=== PATIENT | male | born 1960 | race Caucasian/White ===

== ENCOUNTER 2019-01-02 11:47 | Emergency (ER) | payer OTHER, BC ==
[2019-01-02] MEDS ORDERED: Sodium Chloride 0.9% 10 ML Syringe FLUSH PRN (11:57)
[2019-01-02 12:10] LABS: ANION GAP 15.6 mmol/L (10-20); CHLORIDE,CL 107 mmol/L (98-109); SODIUM,NA 141 mmol/L (138-146)
--- NOTE | 2019-01-02 12:14 | CT ---
[id number] CT/CT Head WO IV EXAM: NONCONTRAST HEAD CT INDICATION: STROKE CODE COMPARISON: None. DISCUSSION: The ventricles and sulci are normal in size and configuration. The fitzgerald and white matter are normal in attenuation. No mass effect or midline shift. No acute hemorrhage or extra-axial fluid collection. No acute territorial infarct is identified. Mild paranasal sinus mucosal thickening. Results called at time of dictation. IMPRESSION: 1. No acute findings. Milton Espinal MD 01/02/19 1177 Thank you for allowing us to participate in the care of your patient.
[2019-01-02] MEDS ORDERED: Aspirin 81 MG Tab.Chew PO ONE (12:22)
--- NOTE | 2019-01-02 12:34 | EDM.PDOC ---
ED HPI GENERAL MEDICAL PROBLEM - General Stated Complaint: L sided facial, upper extremity and lower extremity paresthesia Time Seen by Provider: 01/02/19 11:47 Source of Information: Reports: Patient History Limitations: Reports: No Limitations - History of Present Illness INITIAL COMMENTS - FREE TEXT/NARRATIVE: Pt. presents to ER with complaints of acute onset of L sided facial numbness, L upper extremity numbness, and L leg numbness that started at approx. 1120 this AM. Pt. was just getting in the shower to get ready to go for his daily swim. Pt. states that he has never had symptoms like this before and denies any history of cerebrovascular disease. Denies any recent trauma to head or neck. Pt. reports some vertigo at onset of symptoms as well. He denies any hypertension or lipid disorders. He is a non-smoker. He recently had a stress test for exercise intolerance but he has not gotten the results. Pt. states that after onset, the symptoms almost completely resolved. He initially refused transport but was talked into it by EMS. His symptoms got mildly worse an he has had the above symptoms since arrival to ER. He has not had any facial droop or asymmetry. No pronator drift. Speech has been fluent and clear. - Related Data Allergies Allergy/AdvReac Type Severity Reaction Status Date / Time No Known Allergies Allergy Verified 01/02/19 11:57 Past Medical History - Past Health History Medical/Surgical History: Denies Medical/Surgical History ED ROS GENERAL - Review of Systems Review Of Systems: See Below Constitutional: Reports: No Symptoms HEENT: Reports: No Symptoms Respiratory: Reports: No Symptoms Cardiovascular: Reports: No Symptoms Endocrine: Reports: No Symptoms GI/Abdominal: Reports: No Symptoms : Reports: No Symptoms Musculoskeletal: Reports: No Symptoms Skin: Reports: No Symptoms Neurological: Reports: Paresthesia (L upper and lower extremity, L sided facial droop) Psychiatric: Reports: No Symptoms Hematologic/Lymphatic: Reports: No Symptoms Immunologic: Reports: No Symptoms ED EXAM, GENERAL - Physical Exam Exam: See Below Exam Limited By: No Limitations General Appearance: Alert, WD/WN, No Apparent Distress Eye Exam: Bilateral Eye: EOMI, Normal Fundi, Normal Inspection, PERRL Nose: Normal Inspection, Normal Mucosa, No Blood Throat/Mouth: Normal Inspection, Normal Lips, Normal Teeth, Normal Gums, Normal Oropharynx, Normal Voice, No Airway Compromise Head: Atraumatic, Normocephalic Neck: Normal Inspection, Supple, Non-Tender, Full Range of Motion Respiratory/Chest: No Respiratory Distress, Lungs Clear, Normal Breath Sounds, No Accessory Muscle Use, Chest Non-Tender Cardiovascular: Normal Peripheral Pulses, Regular Rate, Rhythm, No Edema, No Gallop, No JVD, No Murmur, No Rub Peripheral Pulses: 4+: Radial (L), Radial (R), Dorsalis Pedis (L), Dorsalis Pedis (R) GI/Abdominal: Normal Bowel Sounds, Soft, Non-Tender, No Organomegaly, No Distention, No Abnormal Bruit, No Mass (Male) Exam: Deferred Rectal (Males) Exam: Deferred Back Exam: Normal Inspection, Full Range of Motion, NT Extremities: Normal Inspection, Normal Range of Motion, Non-Tender, Normal Capillary Refill, No Pedal Edema Neurological: Alert, Oriented, CN II-XII Intact, Normal Cognition, Sensory/ Motor Deficit (reports paresthesia to L upper extremity. Level of paresthesia appears to be even throughout the extremities. Facial numbness primarily to L lateral maxillary/mandibular area) EKG INTERPRETATION Rhythm: NSR [place]: Normal P-Wave: Present QRS: Normal ST-T: Normal QT: Normal Course - Orders/Labs/Meds Orders: Active Orders 24 hr Category Date Time Status EKG Documentation Completion [RC] STAT Care 01/02/19 11:58 Ordered CBC WITH AUTO DIFF [HEME] Stat Lab 01/02/19 11:58 Ordered COMPREHENSIVE METABOLIC PN,CMP [CHEM] Stat Lab 01/02/19 11:58 Ordered CRP [C-REACTIVE PROTEIN] [CHEM] Stat Lab 01/02/19 11:58 Ordered MAGNESIUM [CHEM] Stat Lab 01/02/19 11:58 Ordered PHOSPHORUS [CHEM] Stat Lab 01/02/19 11:58 Ordered TSH ULTRASENSITIVE [CHEM] Stat Lab 01/02/19 11:58 Ordered Sodium Chloride 0.9% [Saline Flush] Med 01/02/19 11:57 Ordered 10 ml FLUSH ASDIRECTED PRN Peripheral IV Insertion Adult [OM.PC] Routine Oth 01/02/19 11:58 Ordered Medication Orders Sodium Chloride (Saline Flush) 10 ml FLUSH ASDIRECTED PRN PRN Reason: Keep Vein Open Labs: Laboratory Tests 01/02/19 01/02/19 01/02/19 Range/Units 12:00 12:00 12:00 PT 10.6 (10.0-12.8) SEC INR 0.9 L (2.0-3.5) Sodium 141 (138-146) mmol/L Potassium 3.6 (3.5-4.9) mmol/L Chloride 107 (98-109) mmol/L Carbon Dioxide 22 L (24-29) mmol/L Anion Gap 15.6 (10-20) mmol/L BUN 22 (8-26) mg/dL Creatinine 1.0 (0.6-1.3) mg/dL Est Cr Clr Drug Dosing TNP Estimated GFR (MDRD) > 60 Glucose 93 (70-105) mg/dL POC Glucose 86 (74-106) mg/dL POC Troponin I (0.00-0.08) ng/mL Troponin I Cancelled 01/02/19 Range/Units 12:10 PT (10.0-12.8) SEC INR (2.0-3.5) Sodium (138-146) mmol/L Potassium (3.5-4.9) mmol/L Chloride (98-109) mmol/L Carbon Dioxide (24-29) mmol/L Anion Gap (10-20) mmol/L BUN (8-26) mg/dL Creatinine (0.6-1.3) mg/dL Est Cr Clr Drug Dosing Estimated GFR (MDRD) Glucose (70-105) mg/dL POC Glucose (74-106) mg/dL POC Troponin I 0.00 (0.00-0.08) ng/mL Troponin I Meds: Medications Generic Name Dose Route Start Last Admin Trade Name Freq PRN Reason Stop Dose Admin Sodium Chloride 10 ml 01/02/19 11:57 Saline Flush FLUSH ASDIRECTED PRN Keep Vein Open Discontinued Medications Generic Name Dose Route Start Last Admin Trade Name Freq PRN Reason Stop Dose Admin Aspirin 324 mg 01/02/19 12:22 Aspirin PO 01/02/19 12:23 ONETIME ONE - Radiology Interpretation Free Text/Narrative:: CT brain without contast obtained and was negative for acute pathology Departure - Departure Time of Disposition: 12:38 Disposition: DC/Tfer to Acute Hospital 02 Clinical Impression: CVA (cerebral vascular accident) - Discharge Information Referrals: Luc Murray MD [Primary Care Provider] - Forms: Interfacility Transfer EMTALA - Problem List Review Problem List Initiated/Reviewed/Updated: Yes - My Orders Last 24 Hours: My Active Orders 01/02/19 11:57 Sodium Chloride 0.9% [Saline Flush] 10 ml FLUSH ASDIRECTED PRN 01/02/19 11:58 EKG Documentation Completion [RC] STAT CBC WITH AUTO DIFF [HEME] Stat COMPREHENSIVE METABOLIC PN,CMP [CHEM] Stat CRP [C-REACTIVE PROTEIN] [CHEM] Stat MAGNESIUM [CHEM] Stat PHOSPHORUS [CHEM] Stat TSH ULTRASENSITIVE [CHEM] Stat Peripheral IV Insertion Adult [OM.PC] Routine - Assessment/Plan Last 24 Hours: My Active Orders 01/02/19 11:57 Sodium Chloride 0.9% [Saline Flush] 10 ml FLUSH ASDIRECTED PRN 01/02/19 11:58 EKG Documentation Completion [RC] STAT CBC WITH AUTO DIFF [HEME] Stat COMPREHENSIVE METABOLIC PN,CMP [CHEM] Stat CRP [C-REACTIVE PROTEIN] [CHEM] Stat MAGNESIUM [CHEM] Stat PHOSPHORUS [CHEM] Stat TSH ULTRASENSITIVE [CHEM] Stat Peripheral IV Insertion Adult [OM.PC] Routine Plan: Pt. will be transferred for further evaluation and treatment. His NIH stroke scale was 1. I spoke with Dr. Gaspar who accepts the patient in transfer. No TPA will be given due to some initial variability of symptoms and low NIH scale. He was given 324mg aspirin PO. He is a code 1. He will be transported by [facility] ground ambulance.
== END 2019-01-02 12:48 | disposition short-term general hospital (02) ==
LOC: VM.ED 11:47
DX: I63.9 Cerebral infarction, unspecified (principal)
CPT/HCPCS: 36415; 70450; 80053; 82962; 83735; 84100; 84443; 84484; 85025; 85610; 86140; 93005; 93010; 99285-25; A9270-GY

== ENCOUNTER 2019-11-10 16:49 | Emergency (ER) | payer OTHER, BC ==
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
[2019-11-10 17:48] LABS: CHLORIDE,CL 105 mmol/L (98-107); SODIUM,NA 139 mmol/L (136-145)
[2019-11-10 17:49] LABS: ANION GAP 13.2 mmol/L (10-20)
== END 2019-11-10 18:10 | disposition home or self-care (01) ==
LOC: VM.ED 16:49
DX: R53.1 Weakness (principal); E03.9 Hypothyroidism, unspecified; Z86.73 Personal history of transient ischemic attack (TIA), and cerebral infarction without residual deficits; Z79.890 Hormone replacement therapy; Z79.2 Long term (current) use of antibiotics
CPT/HCPCS: 36415; 80053; 84484; 85025; 93005; 99285-25

== ENCOUNTER 2020-08-04 11:51 | Emergency (ER) | payer BC, OTHER ==
[2020-08-04] MEDS ORDERED: Sodium Chloride 0.9% 10 ML Syringe FLUSH PRN (12:09)
[2020-08-04 12:54] LABS: ANION GAP 11.4 mmol/L (10-20); CHLORIDE,CL 104 mmol/L (98-107); SODIUM,NA 140 mmol/L (136-145)
--- NOTE | 2020-08-04 14:19 | EDM.PDOC ---
ED HPI GENERAL MEDICAL PROBLEM - General Chief Complaint: General Stated Complaint: ER Time Seen by Provider: 08/04/20 12:00 Source of Information: Reports: Patient History Limitations: Reports: No Limitations - History of Present Illness INITIAL COMMENTS - FREE TEXT/NARRATIVE: Pt. presents to ER with numerous complaints. He states that he feels as though his heart is pounding. Denies any chest pain. He states that he can feel this pounding sensation in his throat as well. Denies any fever or chills. No shortness of breath. Denies any fever or chills. Pt. states that he has also felt flushed in his face. He also complains of diffuse weakness in his extremities. Pt. states that he stopped taking levothyroxine abruptly about 4-5 days ago. He has a history of prior CVA/TIAs in the past but states that these symptoms are not the same. He states that he has stopped taking plavix and recently stopped taking aspirin for stroke prevention as well. Pt. denies any cough. No fever or chills. No nausea, vomiting or diarrhea. No problems with speech/ambuation. - Related Data Allergies Allergy/AdvReac Type Severity Reaction Status Date / Time No Known Allergies Allergy Verified 08/04/20 13:16 Home Meds: Home Meds Aspirin [Halfprin] 81 mg PO DAILY 11/10/19 [History] Levothyroxine Sodium [Synthroid] 25 mcg PO DAILY 11/10/19 [History] Past Medical History - Past Health History Medical/Surgical History: Denies Medical/Surgical History Neurological History: Reports: TIA, Vertigo Endocrine/Metabolic History: Reports: Hypothyroidism Social & Family History - Tobacco Use Tobacco Use Status *Q: Unknown Ever Used Tobacco ED ROS GENERAL - Review of Systems Review Of Systems: See Below Constitutional: Reports: Fatigue. Denies: Fever, Chills, Weakness, Night Sweats HEENT: Reports: No Symptoms Respiratory: Reports: No Symptoms Cardiovascular: Reports: Palpitations. Denies: Chest Pain, Dyspnea on Exertion Endocrine: Reports: No Symptoms GI/Abdominal: Reports: No Symptoms : Reports: No Symptoms Musculoskeletal: Reports: Muscle Pain, Muscle Stiffness Skin: Reports: No Symptoms Neurological: Reports: Headache. Denies: Confusion, Dizziness, Numbness, Paresthesia, Seizure, Syncope, Tingling, Tremors, Trouble Speaking, Difficulty Walking, Weakness, Change in Speech, Gait Disturbance Psychiatric: Reports: No Symptoms Hematologic/Lymphatic: Reports: No Symptoms Immunologic: Reports: No Symptoms ED EXAM, GENERAL - Physical Exam Exam: See Below Exam Limited By: No Limitations General Appearance: Alert, WD/WN, No Apparent Distress Eye Exam: Bilateral Eye: EOMI, Normal Inspection, PERRL Throat/Mouth: Normal Inspection, Normal Lips, Normal Gums, Normal Oropharynx, Normal Voice, No Airway Compromise Head: Atraumatic, Normocephalic Neck: Normal Inspection, Supple, Non-Tender, Full Range of Motion Respiratory/Chest: No Respiratory Distress, Lungs Clear, Normal Breath Sounds, No Accessory Muscle Use, Chest Non-Tender Cardiovascular: Normal Peripheral Pulses, Regular Rate, Rhythm, No Edema, No Gallop, No JVD, No Murmur, No Rub Peripheral Pulses: 4+: Radial (L) GI/Abdominal: Soft, Non-Tender, No Distention, No Mass (Male) Exam: Deferred Rectal (Males) Exam: Deferred Back Exam: Normal Inspection, Full Range of Motion Extremities: Normal Inspection, Normal Range of Motion, No Pedal Edema, Normal Capillary Refill Neurological: Alert, Oriented, CN II-XII Intact, Normal Cognition, Normal Reflexes, No Motor/Sensory Deficits Psychiatric: Normal Affect, Normal Mood Skin Exam: Warm, Dry, Intact, Normal Color, No Rash Lymphatic: No Adenopathy #1 Interpretation Rhythm: NSR [place]: Normal P-Wave: Present QRS: Normal ST-T: Normal QT: Normal Course - Vital Signs Last Recorded V/S: Last Vital Signs Temp 36.7 C 08/04/20 13:39 Pulse 59 L 08/04/20 13:39 Resp 11 L 08/04/20 13:39 BP 123/75 08/04/20 13:39 Pulse Ox 100 08/04/20 13:39 - Orders/Labs/Meds Orders: Active Orders 24 hr Category Date Time Status Peripheral IV Insertion Adult [OM.PC] Routine Oth 08/04/20 12:09 Ordered Labs: Laboratory Tests 08/04/20 08/04/20 08/04/20 Range/Units 12:19 12:19 12:19 WBC 5.5 (4.0-10.0) x10^3/uL RBC 4.80 (4.5-6.0) x10^6/uL Hgb 14.8 (14.0-18.0) g/dL Hct 44.0 (40.0-52.0) % MCV 91.7 (78.0-93.0) fL MCH 30.8 (26.0-32.0) pg MCHC 33.6 (32.0-36.0) g/dL RDW Coeff of Sophy 13.3 (10.0-15.0) % Plt Count 214 (130-400) x10^3/uL Neut % (Auto) 65.8 (50.0-80.0) % Lymph % (Auto) 19.3 L (25.0-50.0) % [place] % (Auto) 7.8 (2.0-11.0) % Eos % (Auto) 6.7 H (0.0-4.0) % Baso % (Auto) 0.4 (0.2-1.2) % PT 10.4 (9.5-12.3) SEC INR 1.0 L (2.0-3.5) Sodium 140 (136-145) mmol/L Potassium 4.4 (3.5-5.1) mmol/L Chloride 104 (98-107) mmol/L Carbon Dioxide 29 (21-32) mmol/L Anion Gap 11.4 (10-20) mmol/L BUN 14 (7-18) mg/dL Creatinine 1.2 (0.70-1.30) mg/dL Est Cr Clr Drug Dosing TNP Estimated GFR (MDRD) > 60 Glucose 116 H (74-106) mg/dL Calcium 8.9 (8.5-10.1) mg/dL Corrected Calcium 9.22 (8.5-10.1) mg/dL Total Bilirubin 0.4 (0.2-1.0) mg/dL AST 17 (15-37) U/L ALT 26 (16-63) U/L Alkaline Phosphatase 77 (46-116) U/L Troponin I < 0.017 (<=0.056) ng/mL C-Reactive Protein 0.3 (<=0.9) mg/dL Total Protein 6.6 (6.4-8.2) g/dL Albumin 3.6 (3.4-5.0) g/dL Globulin 3.0 Albumin/Globulin Ratio 1.20 TSH, Ultra Sensitive 15.284 H (0.358-3.74) uIU/mL Meds: Medications Discontinued Medications Generic Name Dose Route Start Last Admin Trade Name Veronica PRN Reason Stop Dose Admin Sodium Chloride 10 ml 08/04/20 12:09 Saline Flush FLUSH ASDIRECTED PRN Keep Vein Open Departure - Departure Time of Disposition: 00:56 Disposition: Home, Self-Care 01 Clinical Impression: Hypothyroid - Discharge Information Instructions: Hypothyroidism Referrals: IESHA KOHLER [Other] Forms: ED Department Discharge Additional Instructions: Restart your thyroid medication. I also advise you to take your aspirin daily and also restarting your Plavix, as this will help keep you from having a stroke. Recheck in clinic in 7-10 days. Sepsis Event Note (ED) - Evaluation Sepsis Screening Result: No Definite Risk - Focused Exam Vital Signs: Vital Signs Temp Pulse Resp BP Pulse Ox 08/04/20 13:39 36.7 C 59 L 11 L 123/75 100 08/04/20 11:55 36.4 C 74 18 139/93 H 98 - My Orders Last 24 Hours: My Active Orders 08/04/20 12:09 Peripheral IV Insertion Adult [OM.PC] Routine - Assessment/Plan Last 24 Hours: My Active Orders 08/04/20 12:09 Peripheral IV Insertion Adult [OM.PC] Routine Plan: Restart your thyroid medication. I also advise you to take your aspirin daily and also restarting your Plavix, as this will help keep you from having a stroke. Recheck in clinic in 7-10 days.
== END 2020-08-04 14:07 | disposition home or self-care (01) ==
LOC: VM.ED 11:51
DX: E03.9 Hypothyroidism, unspecified (principal); Z86.73 Personal history of transient ischemic attack (TIA), and cerebral infarction without residual deficits; Z79.82 Long term (current) use of aspirin; Z79.899 Other long term (current) drug therapy
CPT/HCPCS: 36415; 80053; 84443; 84484; 85025; 85610; 86140; 93005; 93010; 99284; 99285-25

== ENCOUNTER 2020-11-04 16:10 | Emergency (ER) | payer OTHER ==
[2020-11-04 17:15] LABS: CHLORIDE,CL 101 mmol/L (98-107); SODIUM,NA 139 mmol/L (136-145)
--- NOTE | 2020-11-07 07:14 | EDM.PDOC ---
ED HPI GENERAL MEDICAL PROBLEM - General Chief Complaint: Cardiovascular Problem Stated Complaint: 1610 Time Seen by Provider: 11/04/20 16:10 Source of Information: Reports: Patient History Limitations: Reports: No Limitations - History of Present Illness INITIAL COMMENTS - FREE TEXT/NARRATIVE: Pt. presents to ER with complaints of palpitations. He states that he has been experiencing this for about a year. He was seen for the same in the ER last fall. According to his [facility], he has not followed up for this problem as an outpatient. He denies any chest pain. Complains of mild dyspnea, worse when active. Pt. states that he thinks the symptoms are worse after/during eating. Denies any fever or chills. No nausea, vomiting, or diarrhea. Denies any cough or chest congestion. No hemoptysis. Denies any recent illness. On arrival to ER, he complained of racing heart. Nursing relates that the monitor showed a sinus rhythm at regular rate. Onset: Today Onset Date: 11/07/20 Location: Reports: Chest, Generalized - Related Data Allergies Allergy/AdvReac Type Severity Reaction Status Date / Time No Known Allergies Allergy Verified 11/04/20 16:42 Home Meds: Home Meds Aspirin [Halfprin] 81 mg PO DAILY 11/10/19 [History] Levothyroxine Sodium [Synthroid] 25 mcg PO DAILY 11/10/19 [History] Past Medical History - Past Health History Medical/Surgical History: Denies Medical/Surgical History Neurological History: Reports: TIA, Vertigo Endocrine/Metabolic History: Reports: Hypothyroidism Social & Family History - Tobacco Use Tobacco Use Status *Q: Never Tobacco User ED ROS GENERAL - Review of Systems Review Of Systems: See Below Constitutional: Reports: No Symptoms HEENT: Reports: No Symptoms Respiratory: Reports: Shortness of Breath Cardiovascular: Reports: Dyspnea on Exertion, Palpitations. Denies: Chest Pain, Blood Pressure Problem, Claudication, Edema, Lightheadedness, Orthopnea, PND, Syncope Endocrine: Reports: No Symptoms GI/Abdominal: Reports: No Symptoms : Reports: No Symptoms Musculoskeletal: Reports: No Symptoms Skin: Reports: No Symptoms Neurological: Reports: No Symptoms Psychiatric: Reports: No Symptoms Hematologic/Lymphatic: Reports: No Symptoms Immunologic: Reports: No Symptoms ED EXAM, GENERAL - Physical Exam Exam: See Below Exam Limited By: No Limitations General Appearance: Alert, WD/WN, No Apparent Distress Throat/Mouth: Normal Inspection, Normal Lips, Normal Teeth, Normal Gums, Normal Oropharynx, Normal Voice, No Airway Compromise Head: Atraumatic, Normocephalic Neck: Normal Inspection, Supple, Non-Tender, Full Range of Motion Respiratory/Chest: No Respiratory Distress, Lungs Clear, Normal Breath Sounds, No Accessory Muscle Use Cardiovascular: Normal Peripheral Pulses, Regular Rate, Rhythm, No Edema, No JVD Peripheral Pulses: 4+: Radial (L) GI/Abdominal: Soft, Non-Tender, No Distention, No Mass (Male) Exam: Deferred Rectal (Males) Exam: Deferred Extremities: Normal Inspection, Normal Range of Motion, Non-Tender, No Pedal Edema, Normal Capillary Refill Neurological: Alert, Oriented, CN II-XII Intact, Normal Cognition, Normal Reflexes, No Motor/Sensory Deficits Psychiatric: Normal Affect, Normal Mood Skin Exam: Warm, Dry, Intact, Normal Color, No Rash Lymphatic: No Adenopathy #1 Interpretation Rhythm: NSR Ramer: Normal P-Wave: Present QRS: Normal ST-T: Normal QT: Normal Course - Vital Signs Last Recorded V/S: Last Vital Signs Temp 36.4 C 11/04/20 16:10 Pulse 64 11/04/20 17:25 Resp 14 11/04/20 17:25 BP 127/86 11/04/20 17:25 Pulse Ox 95 11/04/20 17:25 - Orders/Labs/Meds Labs: Laboratory Tests 11/04/20 11/04/20 11/04/20 Range/Units 16:32 16:32 16:32 WBC 7.2 (4.0-10.0) x10^3/uL RBC 4.94 (4.5-6.0) x10^6/uL Hgb 15.0 (14.0-18.0) g/dL Hct 43.8 (40.0-52.0) % MCV 88.7 D (78.0-93.0) fL MCH 30.4 (26.0-32.0) pg MCHC 34.2 (32.0-36.0) g/dL RDW Coeff of Sophy 13.1 (10.0-15.0) % Plt Count 261 (130-400) x10^3/uL Neut % (Auto) 60.6 (50.0-80.0) % Lymph % (Auto) 25.0 (25.0-50.0) % Addison % (Auto) 8.8 (2.0-11.0) % Eos % (Auto) 5.3 H (0.0-4.0) % Baso % (Auto) 0.3 (0.2-1.2) % PT 10.4 (9.9-12.5) SEC INR 0.9 L (2.0-3.5) APTT (25.6-32.8) SEC Sodium 139 (136-145) mmol/L Potassium 4.0 (3.5-5.1) mmol/L Chloride 101 (98-107) mmol/L Carbon Dioxide 29 (21-32) mmol/L Anion Gap 13.0 (5-15) mmol/L BUN 15 (7-18) mg/dL Creatinine 1.3 (0.70-1.30) mg/dL Est Cr Clr Drug Dosing TNP Estimated GFR (MDRD) 56 Glucose 88 (74-106) mg/dL Calcium 9.1 (8.5-10.1) mg/dL Corrected Calcium 9.10 (8.5-10.1) mg/dL Magnesium 2.3 (1.8-2.4) mg/dL Total Bilirubin 0.4 (0.2-1.0) mg/dL AST 17 (15-37) U/L ALT 27 (16-63) U/L Alkaline Phosphatase 91 (46-116) U/L Troponin I < 0.017 (<=0.056) ng/mL C-Reactive Protein 0.2 (<=0.9) mg/dL Total Protein 7.4 (6.4-8.2) g/dL Albumin 4.0 (3.4-5.0) g/dL Globulin 3.4 Albumin/Globulin Ratio 1.18 TSH, Ultra Sensitive 10.674 H (0.358-3.74) uIU/mL 11/04/20 Range/Units 16:32 WBC (4.0-10.0) x10^3/uL RBC (4.5-6.0) x10^6/uL Hgb (14.0-18.0) g/dL Hct (40.0-52.0) % MCV (78.0-93.0) fL MCH (26.0-32.0) pg MCHC (32.0-36.0) g/dL RDW Coeff of Sophy (10.0-15.0) % Plt Count (130-400) x10^3/uL Neut % (Auto) (50.0-80.0) % Lymph % (Auto) (25.0-50.0) % Addison % (Auto) (2.0-11.0) % Eos % (Auto) (0.0-4.0) % Baso % (Auto) (0.2-1.2) % PT (9.9-12.5) SEC INR (2.0-3.5) APTT 26.1 (25.6-32.8) SEC Sodium (136-145) mmol/L Potassium (3.5-5.1) mmol/L Chloride (98-107) mmol/L Carbon Dioxide (21-32) mmol/L Anion Gap (5-15) mmol/L BUN (7-18) mg/dL Creatinine (0.70-1.30) mg/dL Est Cr Clr Drug Dosing Estimated GFR (MDRD) Glucose (74-106) mg/dL Calcium (8.5-10.1) mg/dL Corrected Calcium (8.5-10.1) mg/dL Magnesium (1.8-2.4) mg/dL Total Bilirubin (0.2-1.0) mg/dL AST (15-37) U/L ALT (16-63) U/L Alkaline Phosphatase (46-116) U/L Troponin I (<=0.056) ng/mL C-Reactive Protein (<=0.9) mg/dL Total Protein (6.4-8.2) g/dL Albumin (3.4-5.0) g/dL Globulin Albumin/Globulin Ratio TSH, Ultra Sensitive (0.358-3.74) uIU/mL Departure - Departure Time of Disposition: 18:15 Disposition: Home, Self-Care 01 Clinical Impression: Palpitations - Discharge Information Instructions: Palpitations, [id number] Referrals: PCP,None [Primary Care Provider] - Forms: ED Department Discharge Additional Instructions: Your EKG was unchanged, and all of your lab work was within normal limits. I would follow-up with the OR for possible echocardiogram and holter study, possibly a stress test. I will highlight my findings in my documentation. Sepsis Event Note (ED) - Evaluation Sepsis Screening Result: No Definite Risk - Assessment/Plan Plan: Pt. was monitored during his stay in ER. Other than occasional PVCs he had or runs of tachycardia. Labs were within normal limits. Discussed findings with patient. Advised him to follow-up with his PCP for possible holter study, echocardiogram. Esophageal etiology of symptoms cannot be excluded, as the symptoms are worse when eating. Pt. will return if he has any increased shortness of breath, lightheadedness, or chest pain. He is welcome to call at any time.
== END 2020-11-04 18:07 | disposition home or self-care (01) ==
LOC: VM.ED 16:10
DX: R00.2 Palpitations (principal); R06.00 Dyspnea, unspecified; E03.9 Hypothyroidism, unspecified; Z79.82 Long term (current) use of aspirin; Z79.899 Other long term (current) drug therapy
CPT/HCPCS: 80053; 83735; 84443; 84484; 85025; 85610; 85730; 86140; 93005; 99285-25